=== PATIENT | male | born 1995 | race Caucasian/White ===

== ENCOUNTER 2021-09-27 10:34 | Emergency (ER) | payer OTHER, SELFPAY ==
--- NOTE | 2021-09-27 11:13 | DI.RAD.S_ITS ---
PROCEDURE: XR CHEST 1V INDICATIONS: cough TECHNIQUE: One view of the chest was acquired. COMPARISON: None. FINDINGS: Surgical changes and devices: None. Lungs and pleura: Lungs are clear. No pleural effusions or pneumothorax. Mediastinum: Mediastinal contours appear normal. Heart size is normal. Bones and chest wall: No suspicious bony lesions. Overlying soft tissues appear unremarkable. Healed right clavicular fracture is noted. IMPRESSION: No acute cardiopulmonary abnormality. Dictated by: Feng Booth M.D. on 09/27/2021 at 11:23 Approved by: Feng Booth M.D. on 09/27/2021 at 11:24
[2021-09-27 11:23] VITALS: BP 132/82; PULSE 87; RESP 18; TEMP 38; O2SAT 94; BMI 18.8
[2021-09-27 11:38] LABS: Add Manual Diff / Slide Review NO; Basophils Absolute Auto 0 /uL (0-100); Basophils Percent Auto 0.3 % (0-2); Eosinophils Absolute Auto 0 /uL (0-450); Eosinophils Percent Auto 0.1 % (2-4); Hemoglobin 13.7 g/dL (13.5-17.5); Lymphocytes Absolute Auto 1500 /uL (1100-4500); Lymphocytes Percent Auto 9.4 % (25-40); Mean Corpuscular HGB Conc 34.3 % (30-36); Mean Corpuscular Volume 90.6 fL (80-100); Monocytes Absolute Auto 1400 /uL (0-900); Monocytes Percent Auto 9.3 % (3-14); Neutrophils Absolute Auto 12500 /uL (1500-7000); Neutrophils Percent Auto 80.9 % (50-75); Platelet Count 192 X10^3/uL (150-400); Red Blood Cell Count 4.41 X10^6/uL (4.5-5.9); Red Cell Distribution Width 13.3 % (11.6-14.8); White Blood Cell Count 15.5 X10^3/uL (4.5-11.0)
[2021-09-27] MEDS: SODIUM CHLORIDE 0.9% 1,000 ML 1000 ML IV (11:38)
[2021-09-27 11:40] VITALS: PULSE 83; O2SAT 97
[2021-09-27 11:41] VITALS: BP 121/80; PULSE 81; O2SAT 97
[2021-09-27 11:43] LABS: Appearance Urine UA TURBID; Bilirubin Urine UA 2+ (NEGATIVE); Color Urine UA BROWN; Glucose Urine UA NEGATIVE (Negative); Ketones Urine UA 1+ (NEGATIVE); Leukocyte Esterase Urine UA 1+ (NEGATIVE); Nitrite Urine UA POSITIVE (Negative); Occult Blood Urine UA 3+ (Negative); Protein Urine UA 3+ (Negative); pH Urine UA 6.5 (4.5-8.0)
[2021-09-27 11:52] LABS: COVID19 -Nasal RAPID Negative (Negative)
[2021-09-27 11:54] LABS: Bacteria Urine Many (>30); Ictotest Urine Negative (Negative); RBC Urine >100/HPF (0-5/HPF); Squamous Epithelial Cell Urine 0-1 /HPF (0-5/HPF); WBC Urine 10-30/HPF (0-5/HPF)
[2021-09-27 11:55] LABS: BUN Creatinine Ratio 17.4 (6-22); Blood Urea Nitrogen 16 mg/dL (9-20); Calcium 9.5 mg/dL (8.4-10.2); Carbon Dioxide 26 mmol/L (22-32); Chloride 102 mmol/L (98-107); Creatine Kinase 44 U/L (55-170); Culture Indicated Urine Specimen Cultured; Estimated Glomerular Filt Rate > 60.0 mL/min (>60); Glucose 109 mg/dL (70-100); HEMOLYSIS 20 (0-50); Hyaline Casts Urine 0-1/LPF; Potassium 3.8 mmol/L (3.4-5.1); Red Blood Cell Casts Urine 0-1/LPF; Sodium 134 mmol/L (137-145)
[2021-09-27 12:00] VITALS: BP 120/74; PULSE 74; O2SAT 98
--- NOTE | 2021-09-27 12:23 | ED.GENADULT ---
HPI - General Adult General Chief complaint: Upper Respiratory Symptoms Stated complaint: Cough, Rhabdomyolysis Time Seen by Provider: 09/27/21 11:12 Source: patient Mode of arrival: Family Vehicle History of Present Illness HPI narrative: Patient is a 26-year-old male who was sent from an outside walk-in clinic for evaluation of fevers and muscle aches and dark colored urine in the concern for rhabdo. Patient is not having any urinary frequency or dysuria. No real risk factors for rhabdo. No chest pain. No coughing. No headache. Has not tried anything for the symptoms prior to arrival. Related Data Home Medications Medication Instructions Recorded Confirmed ascorbic acid (vitamin C) 500 mg 500 mg PO DAILY 09/27/21 09/27/21 chewable tablet rick (Zingiber officinalis) 250 250 mg PO DAILY 09/27/21 09/27/21 mg capsule (rick extract) oregano oil 1,500 mg capsule 1,500 mg PO DAILY 09/27/21 09/27/21 Previous Rx's Medication Instructions Recorded cephalexin 500 mg capsule 500 mg PO BID 7 Days #14 cap 09/27/21 Allergies Allergy/AdvReac Type Severity Reaction Status Date / Time cat dander Allergy Unknown Verified 09/27/21 11:30 coconut Allergy Unknown Verified 09/27/21 11:30 Review of Systems Constitutional Constitutional: Reports fever(s) Cardiovascular Cardiovascular: Denies chest pain and Denies dyspnea Respiratory Respiratory: Denies dyspnea Gastrointestinal Gastrointestinal: Denies abdominal pain Genitourinary Genitourinary: Reports system reviewed and no additional complaints, except as documented, Reports as per HPI, Denies dysuria and Denies urinary frequency Musculoskeletal Comments: Muscle pain Integumentary/Breasts Skin/Breast: Reports system reviewed and no additional complaints, except as documented Hematologic/Lymphatic On Anticoagulants: No Patient History Medical History Healthy adult Social History Smoking Status: Current every day smoker Smoking Status: Current every day smoker tobacco type: vaping alcohol intake frequency: 0-2 drinks per day Substance Use Type: marijuana Exam Initial Vital Signs Initial Vital Signs: Vital Signs Temperature 100.4 F H 09/27/21 11:23 Pulse Rate 87 09/27/21 11:23 Respiratory Rate 18 09/27/21 11:23 Blood Pressure 132/82 09/27/21 11:23 Pulse Oximetry 94 09/27/21 11:23 HENMT Head: normal to inspection and normocephalic Resp Effort & Inspection: normal respiratory effort Cardio Rate: regular rate Skin General: no rashes or lesions noted Neuro General: patient alert, patient awake, patient oriented x3 and moves all extremities Extrem General: capillary refill normal Course Orders Ordered: ED Orders 09/27/21 11:11 Basic Metabolic Panel Stat COVID19 -Nasal swab/Pre-Proc Stat Creatine Kinase Stat Ictotest Urine Stat Urinalysis and Microscopic Stat Urine Culture Stat 09/27/21 11:13 XR chest 1V Stat 09/27/21 11:24 Complete Blood Count AUTO DIFF Stat 09/27/21 13:02 Urine Culture Stat Discontinued Medications Sodium Chloride (Normal Saline 0.9%) 1,000 mls @ 1,000 mls/hr IV BOLUS ONE Stop: 09/27/21 12:11 Last Infusion: 09/27/21 12:39 Dose: 0 mls/hr Documented by: Admin: 09/27/21 11:38 Dose: 1,000 mls/hr Documented by: WALDEMAR Vital Signs Vital signs: Vital Signs - 8 hr 09/27/21 11:23 09/27/21 11:40 09/27/21 11:41 Temperature 100.4 F H Pulse Rate 87 83 81 Respiratory Rate 18 Blood Pressure 132/82 121/80 Pulse Oximetry 94 97 97 09/27/21 12:00 09/27/21 12:30 Temperature Pulse Rate 74 79 Respiratory Rate Blood Pressure 120/74 122/79 Pulse Oximetry 98 98 Medical Decision Making Lab Data Lab results reviewed: Yes I reviewed the patient's lab results. Result diagrams: 09/27/21 11:24 09/27/21 11:11 Labs: Lab Results 09/27/21 09/27/21 09/27/21 Range/Units 11:11 11:11 11:11 WBC (4.5-11.0) X10^3/uL RBC (4.5-5.9) X10^6/uL Hgb (13.5-17.5) g/dL Hct (41-53) % MCV (80-100) fL MCH (26-34) PG MCHC (30-36) % RDW (11.6-14.8) % Plt Count (150-400) X10^3/uL Neut % (Auto) (50-75) % Lymph % (Auto) (25-40) % [place] % (Auto) (3-14) % Eos % (Auto) (2-4) % Baso % (Auto) (0-2) % Neut # (Auto) (6270-0429) /uL Lymph # (Auto) (6774-9834) /uL [place] # (Auto) (0-900) /uL Eos # (Auto) (0-450) /uL Baso # (Auto) (0-100) /uL Sodium 134 L (137-145) mmol/L Potassium 3.8 (3.4-5.1) mmol/L Chloride 102 (98-107) mmol/L Carbon Dioxide 26 (22-32) mmol/L BUN 16 (9-20) mg/dL Creatinine 0.92 (0.66-1.25) mg/dL Estimated GFR > 60.0 (>60) mL/min BUN/Creatinine Ratio 17.4 (6-22) Glucose 109 H (70-100) mg/dL Calcium 9.5 (8.4-10.2) mg/dL Total Creatine Kinase 44 L (55-170) U/L Urine Color Brown Urine Appearance Turbid Urine pH 6.5 (4.5-8.0) Ur Specific [place] 1.020 (1.000-1.035) Urine Protein 3+ H (Negative) Urine Glucose (UA) Negative (Negative) g/dL Urine Ketones 1+ H (NEGATIVE) Urine Occult Blood 3+ H (Negative) Urine Nitrate Positive H (Negative) Urine Bilirubin 2+ H (NEGATIVE) Ur Bilirubin Confirm Negative (Negative) Urine Urobilinogen 1.0 (0.2) E.U./dL Ur Leukocyte Esterase 1+ H (NEGATIVE) Urine RBC >100/hpf H (0-5/HPF) Urine WBC 10-30/hpf H (0-5/HPF) Ur Squamous Epith Cells 0-1 /hpf (0-5/HPF) Urine Bacteria Many (>30) H (None) Hyaline Casts 0-1/lpf (None) RBC Casts 0-1/lpf (None) Ur Culture Indicated? Specimen cultured SARS-CoV-2 (PCR) Negative (Negative) 09/27/21 Range/Units 11:24 WBC 15.5 H (4.5-11.0) X10^3/uL RBC 4.41 L (4.5-5.9) X10^6/uL Hgb 13.7 (13.5-17.5) g/dL Hct 40.0 L (41-53) % MCV 90.6 (80-100) fL MCH 31.0 (26-34) PG MCHC 34.3 (30-36) % RDW 13.3 (11.6-14.8) % Plt Count 192 (150-400) X10^3/uL Neut % (Auto) 80.9 H (50-75) % Lymph % (Auto) 9.4 L (25-40) % [place] % (Auto) 9.3 (3-14) % Eos % (Auto) 0.1 L (2-4) % Baso % (Auto) 0.3 (0-2) % Neut # (Auto) 38062 H (9711-3641) /uL Lymph # (Auto) 1500 (9526-2959) /uL [place] # (Auto) 1400 H (0-900) /uL Eos # (Auto) 0 (0-450) /uL Baso # (Auto) 0 (0-100) /uL Sodium (137-145) mmol/L Potassium (3.4-5.1) mmol/L Chloride (98-107) mmol/L Carbon Dioxide (22-32) mmol/L BUN (9-20) mg/dL Creatinine (0.66-1.25) mg/dL Estimated GFR (>60) mL/min BUN/Creatinine Ratio (6-22) Glucose (70-100) mg/dL Calcium (8.4-10.2) mg/dL Total Creatine Kinase (55-170) U/L Urine Color Urine Appearance Urine pH (4.5-8.0) Ur Specific [place] (1.000-1.035) Urine Protein (Negative) Urine Glucose (UA) (Negative) g/dL Urine Ketones (NEGATIVE) Urine Occult Blood (Negative) Urine Nitrate (Negative) Urine Bilirubin (NEGATIVE) Ur Bilirubin Confirm (Negative) Urine Urobilinogen (0.2) E.U./dL Ur Leukocyte Esterase (NEGATIVE) Urine RBC (0-5/HPF) Urine WBC (0-5/HPF) Ur Squamous Epith Cells (0-5/HPF) Urine Bacteria (None) Hyaline Casts (None) RBC Casts (None) Ur Culture Indicated? SARS-CoV-2 (PCR) (Negative) MDM Narrative Medical decision making narrative: Labs not consistent with rhabdo. Renal function unremarkable. Patient does have a nitrite positive urine and this is consistent with a urinary tract infection which explains his leukocytosis and his fevers and body aches. Patient has never had a urinary tract infection in the past. No back pain or other physical exam findings that make me concerned for pyelonephritis. Urine culture was obtained and pending at the time of discharge however will send the patient home on antibiotics. This was sent to the pharmacy of his choice. He was given strict return precautions and follow-up instructions. He expressed understanding and agreement Discharge Plan Departure Patient Disposition: Home Clinical Impression: Acute UTI Instructions: DI for Urinary Tract Infection (UTI) Activity Restrictions/Additional Instructions: [facility] antibiotics [facility]. Please start taking them today as directed. A urine culture was pending at the time your discharge we will contact you if we need to switch any antibiotics. Contact your primary doctor for a follow-up. Return to the emergency department for any new or worsening symptoms. Prescriptions: New cephalexin 500 mg capsule 500 mg PO BID 7 Days Qty: 14 0RF No Action oregano oil 1,500 mg Capsule 1,500 mg PO DAILY 0RF rick extract 250 mg Capsule 250 mg PO DAILY 0RF ascorbic acid (vitamin C) [Chewable Vitamin C] 500 mg Tablet,Chewable 500 mg PO DAILY 0RF Referrals: Miscellaneous,DoctorMD [Primary Care Provider] -
[2021-09-27 12:30] VITALS: BP 122/79; PULSE 79; O2SAT 98
== END 2021-09-27 13:06 | disposition home or self-care (01) ==
PROVIDERS: Emergency Provider Emergency Medicine
DX: N39.0 Urinary tract infection, site not specified (principal); F17.290 Nicotine dependence, other tobacco product, uncomplicated; Z20.822 Contact with and (suspected) exposure to COVID-19
CPT/HCPCS: 36415; 71045; 80048; 81001; 82550; 85025; 87086; 87635; 96360; 99284; C9803